=== PATIENT | female | born 1950 | race Caucasian/White ===

== ENCOUNTER 2016-07-16 13:10 | Emergency (ER) | payer OTHER ==
[~2016-07-16] VITALS: Ht 162.6 cm; Wt 105.9 kg
[~2016-07-16 13:10] MED LIST: ALBU8.5H2 IH; FURO-128 PO; HYDR200T PO; KLO1T PO; LISI-609 PO; METO25TA6 PO; PANT40TA2 PO; SERT20OR6 PO
[2016-07-16 13:14] VITALS: BP 134/85; PULSE 82; RESP 20; O2SAT 99
--- NOTE | 2016-07-16 13:38 | ED.REPORT ---
HPI-General Illness Date of Service Jul 16, 2016 ED Provider: Clemente Grover MD Pt is a 66 y.o. female with a hx of Lupus, DM II, CHF, Hep C, and Sjgren's who presents to the ED c/o right sided facial pain onset today. Pt states that it began in her right eye this morning and began to radiate outward. She reports associated headache, nausea, and right flank pain. She denies fever, vomiting, dizziness, head injury, and urinary symptoms. Pt reports taking Naproxen 3 hours prior to arrival with no relief. Pt states she was recently started on Citalopram, 1 week ago, and did not take it last night due to her headache and Dr. Summers recommendation. Pt denies taking immunosuppressants currently. Nursing Notes Stated Complaint: FACIAL PAIN,NAUSEA Chief Complaint: Back Pain or Injury Nursing Notes Reviewed: Yes Allergies: Coded Allergies: Penicillins (Verified Allergy, Severe, Rash, 08/29/14) lamotrigine (Unverified Adverse Reaction, Severe, SLE FLARE, 08/29/14) tramadol (Unverified Adverse Reaction, Severe, SERATONIN SYNDROME, 08/29/14 ) sertraline (Verified Adverse Reaction, Unknown, UNKNOWN (PT TAKING DRUG) , 08/29/14) Uncoded Allergies: ROZEREM/LUNESTA (Adverse Reaction, Severe, DIDN'T WORK, 12/20/13) Scheduled Cephalexin (Cephalexin) 500 Mg Capsule 500 MG PO QID Furosemide (Lasix) 40 Mg Tablet 40 MG PO DAILY Hydroxychloroquine Sulfate (Plaquenil) 200 Mg Tablet 200 MG PO DAILY Lisinopril (Zestril) 5 Mg Tablet 10 MG PO DAILY Metoprolol Tartrate (Metoprolol Tartrate) 25 Mg Tablet 12.5 MG PO BID Ondansetron ODT (Ondansetron ODT) 4 Mg Tab.rapdis 4 MG PO TID Pantoprazole DR (Protonix) 40 Mg Tablet 40 MG PO DAILYAC Sertraline HCl (Sertraline) 20 Mg/1 Ml Oral.conc 150 MG PO DAILY Scheduled PRN Albuterol HFA (Proair HFA) 8.5 Gm Hfa.aer.ad 2 PUFFS IH Q4 PRN PRN For Shortness of Breath Clonazepam (Clonazepam) 1 Mg Tab 1 MG PO DAILY PRN PRN For Anxiety General Time Seen by MD: 13:37 Chief Complaint Other (Flank pain, right) Hx Obtained From: Patient Arrived By: Walk-in Sudden in Onset?: Yes Symptom Duration: Since onset Location: : Abdomen (Flank, right) Quality: Painful Past Medical History Past Medical History CHF Osteoarthritis Hepatitis C-never treated for Inflamatory bowel syndrome Chronic otitis media Chronic insomnia Sjogrens syndrome Reports: Hypertension Past Surgical History Reports: Appendectomy, , Cholecystectomy, Tonsillectomy Smoking History Former Smoker Social History Alcohol Use: "Social" Drug Use: Denies drug use Review of Systems Facial pain, right Full Review of Systems Constitutional: Denies: Fever Eyes: Reports: Eye pain right GI: Reports: Nausea, Denies: Vomiting Female: Reports: Flank pain, Denies: Dysuria, Urinary frequency, Urinary urgency Neurologic: Reports: Headache, Denies: Dizziness Complete sys rev & neg: except as marked. Physical Exam Vital Signs Vital Signs Date Time Temp Pulse Resp B/P Pulse Ox O2 Delivery O2 Flow Rate FiO2 07/16/16 13:14 36.2 82 20 134/85 99 Room Air Initial VS: Reviewed Abdomen / GI: No distention Extremities: Vascular intact, Neuro intact Skin: Warm, Dry, No cyanosis Neurologic: Alert, Oriented, Nonfocal Psychiatric: Mood/affect normal, Behavior normal, Normal thought content General/Constitutional: Awake, Alert, Well appearing, Well developed, Well hydrated, Well nourished, Not toxic appearing Appearance / Presentation: Positive: Obese Head / Eyes: Atraumatic, Normocephalic, PERRL, EOMI Right sided facial tenderness to percussion. Right mucosa engorged. ENT: Atraumatic, Airway patent, Mucous membranes moist, Pharynx NL, Tympanic membs NL, Ext aud canal NL Multiple dental extractions, dentition that remains is intact. Back: Atraumatic, Inspection NL Right CVA tenderness. Interpretation & Diagnostics Lab Results Interpretation Result Diagram: 07/16/16 1520 07/16/16 1520 Test 07/16/16 13:45 07/16/16 15:20 Urine Color Dark yellow (YELLOW) Urine Appearance Hazy (CLEAR,HAZY) Urine pH 5.0 (5.0-8.0) Urine Specific [place] 1.030 (1.003-1.035) Urine Protein Tracemg/dL (NEG,TRACE) Urine Glucose (UA) 100mg/dL (NEGATIVE) Urine Ketones Negativemg/dL (NEGATIVE) Urine Occult Blood Negative (NEGATIVE) Urine Nitrite Negative (NEGATIVE) Urine Bilirubin Negative (NEGATIVE) Urine Urobilinogen Normalmg/dL (NORMAL) Urine Leukocyte Esterase Moderate (NEGATIVE) Urine RBC 0-2/hpf (0-2) Urine WBC 11-50/hpf (0-5) Urine Epithelial Cells Moderate/hpf (NONE-MOD) Urine Crystals None seen (NONE SEEN) Urine Bacteria Moderate/hpf (NONE-FEW) Urine Hyaline Casts None/lpf (NONE) Urine Granular Casts None seen (NONE SEEN) Urine Waxy Casts None seen (NONE SEEN) Urine Red Blood Cell Casts None seen (NONE SEEN) Urine White Blood Cell Casts None seen (NONE SEEN) Urine Mucus Present (None Seen) Urine Trichomonas None seen (NONE SEEN) Urine Yeast None (NONE SEEN) Urinalysis Comment None Urine Culture Reflexed Indicated White Blood Count 4.8th/mm3 (3.8-10.1) Red Blood Count 4.63mil/mm3 (3.90-5.20) Hemoglobin 13.2g/dL (12.0-15.6) Hematocrit 39.6% (35.0-46.0) Mean Corpuscular Volume 85.5fL (81-100) Mean Corpuscular Hemoglobin 28.5pg (27.0-35.0) Mean Corpuscular Hemoglobin Concent 33.3% (32.0-37.0) Red Cell Distribution Width 13.9% (12.3-15.4) Platelet Count 182bil/L (150-400) Neutrophils (%) (Auto) 57.1% (40-74) Lymphocytes (%) (Auto) 31.6% (14-46) Monocytes (%) (Auto) 8.2% (4-12) Eosinophils (%) (Auto) 2.7% (0-5) Basophils (%) (Auto) 0.2% (0-3) Sodium Level 138mEq/L (134-144) Potassium Level 3.6mEq/L (3.5-5.2) Chloride Level 102mEq/L (97-108) Carbon Dioxide Level 23mmol/L (18-29) Blood Urea Nitrogen 14mg/dL (8-27) Creatinine 0.60mg/dL (0.57-1.00) Estimat Glomerular Filtration Rate 142mL/min (>59) Glucose Level 162mg/dL (60-99) Calcium Level 9.3mg/dL (8.5-10.1) Total Bilirubin 0.6mg/dL (0.0-1.2) Aspartate Amino Transf (AST/SGOT) 43U/L (0-50) Alanine Aminotransferase (ALT/SGPT) 34U/L (0-32) Alkaline Phosphatase 71U/L (25-165) Total Protein 6.4g/dL (6.4-8.4) Albumin 3.5g/dL (3.4-5.0) Hold Evans Top Tube Received (Received) CT Head Interpretation IMPRESSION: No acute intracranial disease process. Dictated by: Dannielle Hernandez MD, PhD on 07/16/2016 at 14:31 Approved by: Dannielle Hernandez MD, PhD on 07/16/2016 at 14:33 Re-Eval/Medical Decision Source of Hx: Old records Time of Eval: 16:00 Re-Evaluation/Progress Note: Pt rechecked. Discussed imaging results. Pt states Penicillin allergy is unknown and from childhood. Will administer Keflex. Counseled Regarding: Diagnosis, Lab results, Need for follow-up, When/why to return to ED Discharge & Departure Primary Impression: Pyelonephritis Additional Impressions: Nausea Facial pain Disposition: Home Discharge Condition All VS Reviewed: Yes Condition: Improved Patient Instructions: Sinusitis (ED) Additional Instructions: Emergency department evaluation today included review, examination labs and CT brain. It appears that you have a kidney infection. The facial pain may be due to some sinus congestion, but there does not appear to be an acute sinus infection requiring antibiotics. Use of a nasal saline spray should help relieve the congestion/pressure. We started cephalexen 500mg 4 times a day for 10 days for the kidney infection. May use ibuprofen as needed for pain- 400mg 3 times a day. Ondansetron as needed for nausea. Return to ED for fevers, vomiting increasing flank pain. Follow up with your doctor in 3-5 days, call them monday. Referrals: Milena Summers MD (PCP) Scribe Attestation Portions of this note were transcribed by Clara Duque. IDr. Grover personally performed the history, physical exam and medical decision-making; I reviewed and confirmed the accuracy of the information in the transcribed note. Signed by: Bessy Jara, 07/16/16 and 1747. copies to: Milena Summers MD, Donald L MD Jul 16, 2016 13:38 CLARA DUQUE Jul 16, 2016 13:42
[2016-07-16] MEDS ORDERED: Ondansetron 8 mg ODT Tablet PO ONE (14:15)
--- NOTE | 2016-07-16 14:47 | DRSVH ---
PROCEDURE: CT BRAIN WITHOUT CONTRAST ([id number]) INDICATIONS: headache and nausea TECHNIQUE: Noncontrast 4.5 mm thick angled axial sections acquired from the foramen magnum to the vertex, with c oronal reformats. COMPARISON: [facility], CT, BRAIN W/O CONTRAST, 04/18/2008, 16:42. FINDINGS: Image quality: Excellent. CSF spaces: Basal cisterns are patent. No extra-axial fluid collections. The ventricles are symmet delisa in size and shape. Brain: No intracranial bleeds or masses. There is cerebral volume loss for age, with resultant vent ricular and sulcal prominence. There are periventricular and deep white matter chronic small vessel ischemic changes. There is intracranial internal carotid artery atherosclerosis. Skull and face: Calvarium and visualized facial bones appear intact, without suspicious lesions. Sinuses: Mild mucosal thickening noted in the right sphenoid sinus. The mastoids are clear. IMPRESSION: No acute intracranial disease process. Dictated by: Dannielle Hernandez MD, PhD on 07/16/2016 at 14:31 Approved by: Dannielle Hernandez MD, PhD on 07/16/2016 at 14:33
[2016-07-16 14:48] LABS: APPEARANCE,URINE HAZY (CLEAR,HAZY); COLOR,URINE DARK YELLOW (YELLOW); OCCULT BLOOD,URINE NEGATIVE (NEGATIVE); UROBILINOGEN,URINE NORMAL (NORMAL)
[2016-07-16 15:34] LABS: BASOPHILS % (AUTO) 0.2 % (0-3); EOSINOPHILS % (AUTO) 2.7 % (0-5); MONOCYTES % (AUTO) 8.2 % (4-12); Mean Corpuscular Hemoglobin 28.5 pg (27.0-35.0); Mean Corpuscular Volume 85.5 fL (81-100); NEUTROPHILS % (AUTO) 57.1 % (40-74); Platelet Count 182 bil/L (150-400)
[2016-07-16] MEDS ORDERED: CEPH500C PO (17:25)
[2016-07-16] MEDS ORDERED: ONDA4TAB12 PO (17:25)
== END 2016-07-16 16:58 | disposition home or self-care (01) ==
LOC: SED 13:10
DX: N12 Tubulo-interstitial nephritis, not specified as acute or chronic (principal); R51 Headache; I11.0 Hypertensive heart disease with heart failure; I50.9 Heart failure, unspecified; E11.59 Type 2 diabetes mellitus with other circulatory complications; M32.9 Systemic lupus erythematosus, unspecified; Z90.49 Acquired absence of other specified parts of digestive tract; Z87.891 Personal history of nicotine dependence; Z88.0 Allergy status to penicillin; Z88.5 Allergy status to narcotic agent

== ENCOUNTER 2016-08-08 11:42 | Day surgery (SDC) | payer OTHER, MEDICARE ==
[~2016-08-08] VITALS: Ht 162.6 cm; Wt 107.0 kg
[~2016-08-08 11:42] MED LIST changes: +0.9% Sodium Chloride 1,000 ML IV SCH; +CEPH500C PO; +ONDA4TAB12 PO; +Sodium Chloride LOK Flush 10 mL Syringe IV PRN; +fentaNYL-PF 50 mCg/mL 2 mL Inj IVPUSH PRN
[2016-08-08] MEDS ORDERED: Propofol 10,000 mCg/mL 20 mL Inj ONE (11:43)
[2016-08-08 12:05] VITALS: BP 121/60; PULSE 65; RESP 16; O2SAT 97
[2016-08-08] MEDS ORDERED: METF500T4 PO (12:05)
[2016-08-08] MEDS ORDERED: SPIR25TA3 PO (12:05)
[2016-08-08] MEDS ORDERED: CITA20TA11 PO (12:05)
[2016-08-08] MEDS ORDERED: LOSA25TA21 PO (12:05)
--- NOTE | 2016-08-08 13:25 | PCM.ENDEGD ---
EGD Date of Service: Aug 08, 2016 Physician James Crawford MD Pre Procedure Diagnosis: Abdominal pain and diarrhea Post Procedure Dx & Findings: Esophagitis gastritis Procedure Esophagogastroduodenoscopy PROCEDURE IN DETAIL: After proper sedation, Olympus video endoscope was inserted into patient's mouth and esophagus was successfully intubated. Scope introduced esophagus. Esophagus showed normal shiny whitish mucosa consistent with squamous cell component. Z line was at 35 cm from the incisors. There was mild edema with redness. As no clear displacement of the Z line. Biopsies obtained. Scope further advanced to the stomach. Stomach showed diffuse atrophy of the antrum to the body of the stomach. Isolated redness noted as well. Biopsies obtained. Cardia fundus body antrum pylorus were all visualized. Retroflexion was done. Stomach was easily inflated and deflatable using air. Scope further advanced to the distal duodenum. Duodenum revealed normal villous structures with normal appearing folds without any mass ulcer erosion. 5 biopsies obtained. Impression Esophagitis Gastritis Recommendation Avoid NSAIDs Continue PPI All of GI with PA Presedation Assessment Risks and Benefits Informed consent was obtained from the patient after all risks and benefits including but not limited to drug reaction, infection, pain, bleeding, perforation, as well as alternatives were discussed. Patient monitoring Continuous pulse oximetry, cardiac monitoring, blood pressure monitoring, IV access, and oxygen at 2L per nasal cannula. Periprocedural Fentanyl: Fentanyl 125mcg Incrementally Midazolam: Midazolam 7mg Incrementally Complications There were no periprocedural complications identified. Post Procedure Plan Post Procedure Recommendations 1. Restrict activities today. 2. Resume normal activities in the morning. 3. Resume medications. 4. GERD behavioral modification: - Avoid fatty, acidic, spicy, large meals - Do not lie down after meals - Do not eat or drink anything for at least 2 1/2 hours before going to bed at night - Discontinue tobacco and alcohol - Decrease or avoid caffeine - Avoid chocolate and mints - Decrease weight - Avoid aspirin and non steroidal anti-inflammatory agents (NSAID) such as Aleve, Advil, Mobic, Naproxen, Ibuprofen, etc 5. Add proton pump inhibitor. Take 30 minutes before 1st meal of the day. 6. Patient informed of normal post procedure side effects as bloating, drowsiness, blood streaking in the stool 7. If gastric biopsy reveal H.pylori, continue with appropriate treatment 8. If small bowel biopsy reveals celiac, continue with appropriate treatment 9. Please don't hesitate to call me with any questions James Crawford MD Aug 08, 2016 13:25
[2016-08-08 13:26] VITALS: BP 157/77; PULSE 68; RESP 14; O2SAT 98
[2016-08-08] MEDS ORDERED: Lactated Ringer's 1,000 ML IV SCH (13:26)
--- NOTE | 2016-08-08 13:26 | PCM.HPANE ---
Patient Data Date of Service: Aug 08, 2016 Surgeon Admitting Provider: Attending Provider:James Crawford MD Primary Care Physician:Milena Summers MD Other Provider: Reason for Visit Abdominal Pain Of Unknown Cause Ht/WT & BMI Height (Feet): 5 Height (Inches): 4 Weight (Kilograms): 107 Body Mass Index 40.00 Allergies Coded Allergies: Penicillins (Verified Allergy, Severe, Rash, 08/08/16) lamotrigine (Verified Adverse Reaction, Severe, SLE FLARE, 08/08/16) tramadol (Verified Adverse Reaction, Severe, SERATONIN SYNDROME, 08/08/16) sertraline (Verified Adverse Reaction, Unknown, UNKNOWN (PT TAKING DRUG) , 08/08/16) Uncoded Allergies: ROZEREM/LUNESTA (Adverse Reaction, Severe, DIDN'T WORK, 12/20/13) Past Anesthesia History Anesthesia History: Denies:: Anesthesia Reactions, Fam Anesthesia Reaction, Fam Malignant Hypertherm, Malignant Hyperthermia Diabetes History Hx Diabetes?: Yes ("i just kind of ignore it" just diagnosed november 2014) Current Bedside Blood Glucose: 99 MRSA MRSA: No Medications Active Scripts Ondansetron ODT 4 Mg Tab.rapdis4 Mg PO TID NAUSEA #6 TABLET Prov:Clemente Grover MD 07/16/16 Reported Medications Spironolactone 25 Mg [id number] Mg PO DAILY #30 TABLET Ref 0 08/08/16 Citalopram 20 Mg Ffxdrl41 Mg PO DAILY Ref 0 08/08/16 Metformin 500 Mg Tablet1,000 Mg PO BID Ref 0 08/08/16 Losartan Potassium 25 Mg Egxzov86 Mg PO DAILY 08/08/16 Albuterol HFA (Proair HFA)8.5 Gm Hfa.aer.ad2 Puffs IH Q4 PRN For Shortness of Breath #1 INHALER 12/20/13 Clonazepam 1 Mg Tab1 Mg PO DAILY PRN For Anxiety 30 Days Ref 0 12/20/13 Discontinued Reported Medications Hydroxychloroquine Sulfate (Plaquenil)200 Mg Cnjbzp939 Mg PO DAILY 12/23/13 Sertraline HCl (Sertraline)20 Mg/1 Ml Oral.wqhn116 Mg PO DAILY #1 BOTTLE Ref 0 12/20/13 Discontinued Scripts Cephalexin 500 Mg Qxfcnfs601 Mg PO QID #40 CAPSULE Prov:Clemente Grover MD 07/16/[address] (Protonix)40 Mg Winzaw20 Mg PO DAILYAC 30 Days Prov:Paddy Bailey MD 10/01/13 Furosemide (Lasix)40 Mg Ronorl32 Mg PO DAILY 30 Days Prov:Paddy Bailey MD 10/01/13 Metoprolol Tartrate 25 Mg Dfmfxv20.5 Mg PO BID 30 Days Ref 0 Prov:Paddy Bailey MD 09/30/13 Lisinopril (Zestril)5 Mg Aiphka44 Mg PO DAILY 30 Days Prov:Paddy Bailey MD 09/30/13 History History of ENT Problems?: Yes HEENT History: Positive for:: Hearing Problem (CHRONIC OM/LT ATTIC CHOLESTEATOMA=CURRENT PROBLEM) Denture Type: None Teeth Condition: Within Normal Limits Hx of Heart Problems?: Yes Cardiovascular History: Positive for:: Abdominal Aortic Aneurism (ECHO 09/26- ASCENDING AORTA MILD-MOD ENLARGED) Chest Pain (HOSP 09/2013) Congestive Heart Failure Edema Hypertension Denies:: AICD Heart Murmur (ECHO 09/2013) Pacemaker Valvular Heart Disease Hx of Respiratory Problem?: Yes Respiratory History: Positive for:: Asthma Use of C-PAP Machine (MATTIE+ SLEEP STUDY 11/20/13) Denies:: Tuberculosis Hx Neurologic Problems?: Yes Neurological History: Denies:: CVA Hx of GI Problems?: Yes Hx of Problems?: Yes Genitourinary History: Positive for:: Kidney Stones (??POSS HX OF) Urinary Tract Infection Denies:: HX of Hemodialysis HX of Peritoneal Dialysis: No Female Hx: Denies:: Currently (S/P C/S X2,D&C) Endometriosis Pelvic Inflammatory Problems with Breasts? Skin History: Positive for:: History Skin Disorders? (C/OF ERYTHEMA/PRURITIS) Denies:: Pressure Ulcers Hx Musculoskeletal Problems?: Yes Musculoskeletal History: Positive for:: Systemic Lupus (SLE/SJOGREN'S SYNDROME ) Hx of Psycho/Social Problems?: Yes Psycho Social History: Positive for:: Anxiety Hx Depression Hx Surgeries?: Yes (APPY,C/S X2,TONSILLECTOMY,D&C, TOE NAILS REMOVED RIGHT FOOT ) Hx Any Other Health Problems?: Yes Other History: Positive for:: Hospitalization (CHEST PAIN) Denies:: Cancer Endocrine Disease Thyroid Disease History Blood Transfusions: Denies:: Blood Transfuse Reaction Blood Transfusions Hx Diabetes: Yes ("i just kind of ignore it" just diagnosed november 2014) Bedside Blood Glucose: 99 Hx Alcohol Use: NoHx Substance Use: No Smoking Status: Former Smoker Have You Smoked inLast 12 mo: No Stop/Bang Treated for Sleep Apnea?: Yes Do You Have a CPAP Machine?: No (CAN'T TOLERATE) Risk Assessment Category Category 1A: Patient has history of documented sleep apnea, and HAS NOT received any narcotic, sedative or anesthesia administration during this stay. Category 1B: Patient has history of documented sleep apnea, and HAS received any narcotic , sedative or anesthesia administration during this stay Category 2: Patient has SUSPECTED Obstructive Sleep Apnea, and HAS received any narcotic , sedative or anesthesia administration during this stay. Category 3: Patient has SUSPECTED Obstructive Sleep Apnea and HAS NOT received narcotic, sedative or anesthesia administration during this stay. Category 4: Outpatient in Procedural Areas with known sleep apnea or who screen positive for High Risk via the STOP/BANG questionnaire. Exam Exam Vital Signs Vital Signs Date Time Temp Pulse Resp B/P Pulse Ox O2 Delivery O2 Flow Rate FiO2 08/08/16 12:05 65 16 121/60 97 Room Air General Appearance: Other (sedated) HEENT/AIRWAY: Neck Movement Meds/Labs/Diagnostics Admission Meds Current Medications Lidocaine HCl (Xylocaine Viscous 2% Soln 15mL) 15 ml ONCE PO Last administered on 08/08/16t 13:04; Start 08/08/16 at 06:00 Bedside Blood Glucose: 99 Plan Impression Patient chart reviewed, patient interviewed and anesthestic plan with risks, benefits, and alternatives discussed, and informed consent obtained. NPO per Anesth. Guidelines: Yes ASA Physical Status: ASA2 Mod Systemic Disease Anesthetic Plan: MAC Bene/Risks/Altern/Consents: No HP Complete Prior to Induction: No Other Intra-procedure rescue sedation due to poor patient tolerance. Unable to obtain consent due to patient's level of sedation. Giancarlo Blake MD Aug 08, 2016 13:26
--- NOTE | 2016-08-08 13:29 | PCM.ENDCOL ---
Colonoscopy Date of Service: Aug 08, 2016 Physician James Crawford MD Pre Procedure Diagnosis: Screening abdominal diarrhea Post Procedure Dx & Findings: colon polyp diverticuli hemmorhoids Procedure Colonoscopy PROCEDURE IN DETAIL: Prep adequate Withdrawal time 14 minutes After unremarkable rectal examination the Olympus video colonoscope was inserted patient's anal canal and was advanced to cecum. Landmarks were identified including the ileocecal valve and appendiceal orifice. Scope further advanced to the terminal ileum. Visualized terminal ileum showed normal villous structures without any ulcer mass or erosion. Advanced 8 cm. Scope was withdrawn systematically. Visualized colonic mucosa showed healthy shiny mucosa with normal healthy-appearing vasculature. In the cecum, there was a 1 mm polyp which was removed completely using cold forceps. In the ascending colon there are 2 polyps which was removed completely using cold forceps. These were 1 mm in size. The ascending colon there was a 3 mm polyp which was removed completely using cold snare. Random biopsies are obtained from the cecum to the rectum for workup of diarrhea. Small several diverticula noted in the sigmoid colon. In the rectum retroflexion was done which showed hemorrhoids. Anal canal was inspected carefully on the way out and hemorrhoids noted. Impression Polyps 4 status post complete removal Diverticula Normal TI Hemorrhoids Recommendation Repeat colonoscopy 3 years Diverticular diet Presedation Assessment Risks and Benefits Informed consent was obtained from the patient after all risks and benefits including but not limited to drug reaction, infection, pain, bleeding, perforation, as well as alternatives were discussed. Patient monitoring Continuous pulse oximetry, cardiac monitoring, blood pressure monitoring, IV access, and oxygen at 2L per nasal cannula. Complications There were no periprocedural complications identified. Post Procedure Plan Post Procedure Recommendations 1. Restrict activities today. 2. Resume normal activities in the morning. 3. Resume medications. 4. Patient informed of normal post procedure side effects as bloating, drowsiness, blood streaking in the stool. 5. average risk CRCS. If colon polyps come back as: -Hyperplastic- can repeat colonoscopy in 10 years -Tubular adenoma- repeat colonoscopy in 5 years -Tubulovillous/villous adenoma- repeat colonoscopy in 3 years -If any dysplasia- return to clinic as soon as possible 6. Please don't hesitate to call me with any questions. James Crawford MD Aug 08, 2016 13:29
[2016-08-08] MEDS ORDERED: MetoCLOpramide 5 mg/mL 2 mL Inj IVPUSH PRN (13:30)
[2016-08-08] MEDS ORDERED: Ondansetron 2 mg/mL 2 mL Inj IVPUSH PRN (13:30)
[2016-08-08 13:36] VITALS: BP 151/79; PULSE 60; RESP 14; O2SAT 96
--- NOTE | 2016-08-08 13:43 | PCM.ANEP1 ---
Post Anesthesia PACU Phase 1 Assessment Date of Service: Aug 08, 2016 Vital Signs Vital Signs Date Time Temp Pulse Resp B/P Pulse Ox O2 Delivery O2 Flow Rate FiO2 08/08/16 13:36 60 14 151/79 96 Room Air 08/08/16 13:26 68 14 157/77 98 Room Air 08/08/16 12:05 65 16 121/60 97 Room Air Anesthetic Administered: MAC Level of Alertness: Awake, talking TRAYLOR's with Equal Strength: Yes Pain: No Nausea or Vomiting: No CV Function & Hydration Stable: Yes Airway Device: Oxygen Delivery: Room Air Lungs: Normal Air Movement PACU Phase 2 Assessment Complications: No Follow up Care: N/A Patient Instructions Provided: N/A Comments Rescue MAC requested by endo team in the middle of a colonoscopy, not being tolerated by patient with 7 mg Versed and 125 mcg Fentanyl Giancarlo Blake MD Aug 08, 2016 13:43
--- NOTE | 2016-08-10 17:25 | PATH ---
SURGICAL PATHOLOGY Attending Physician:James Crawford M.D. CASE STATUS: Signed Out PATIENT NAME: NICKOLAS MONK PID: [id number] : 1950 DATE COLLECTED:08/08/2016 00:00 SPECIMEN: 1: Duodenum, Biopsy 2: Gastric, Biopsy 3: Esophagus, Biopsy 4: Colon, Polyp 5: Colon, Biopsy 6: Colon, Polyp 7: Colon, Polyp CLINICAL HISTORY: 1. DUODENAL BX 2. GASTRIC BX 3. ESOPHAGEAL BX 4. CECAL POLYP X1 5. RANDOM COLON BX 6. ASCENDING POLYP X2 7. DESCENDING POLYP FINAL DIAGNOSIS: 1.DUODENAL BIOPSY: DUODENAL MUCOSA WITH NO DIAGNOSTIC ABNORMALITY. Negative for active inflammation, features of sprue, dysplasia, and malignancy. 2.GASTRIC BIOPSY: PORTION OF GASTRIC ANTRAL MUCOSA WITH MILD CHRONIC GASTRITIS AND REACTIVE CHANGES; NEGATIVE FOR DYSPLASIA AND MALIGNANCY. No H. pylori organisms identified by H&E stain. 3.ESOPHAGEAL BIOPSY: SQUAMOCOLUMNAR JUNCTIONAL MUCOSA WITH NO DIAGNOSTIC ABNORMALITY. Negative for intestinal metaplasia. Negative for dysplasia and malignancy. 4.CECAL POLYP, BIOPSY: TUBULAR ADENOMA; NEGATIVE FOR HIGH-GRADE DYSPLASIA. 5.RANDOM COLON BIOPSIES: COLONIC MUCOSA WITH NO DIAGNOSTIC ABNORMALITY. Negative for active, chronic, and microscopic colitis. Negative for dysplasia and malignancy. 6.ASCENDING COLON, POLYP, BIOPSIES: TUBULAR ADENOMA X1; NEGATIVE FOR HIGH-GRADE DYSPLASIA. SUPERFICIAL PORTION OF COLORECTAL MUCOSA X1 WITH NO SIGNIFICANT HISTOMORPHOLOGIC ABNORMALITY. 7.DESCENDING COLON, POLYP, BIOPSY: HISTOLOGIC FEATURES CONSISTENT WITH HYPERPLASTIC POLYP; TANGENTIAL ORIENTATION FOCALLY OBSCURES FEATURES. ICD10 K63.5 GROSS DESCRIPTION: The specimen is received in seven formalin filled containers labeled with the patient's name. 1). The specimen is sublabeled "duodenal" and consists of 4 extremely tiny portions of tissue which aggregate to 0.2 x 0.2 x 0.2 CM. The specimen is entirely submitted in cassette 1A. 2). The specimen is sublabeled "gastric" and consists of a 0.2 x 0.2 x 0.2 CM portion of tissue which is entirely submitted in cassette 2A. 3). The specimen is sublabeled "esophageal" and consists of a 0.2 x 0.2 x 0.2 CM portion of tissue which is entirely submitted in cassette 3A. 4). The specimen is sublabeled "cecal polyp" and consists of a 0.1 x 0.1 x 0.1 CM portion of tissue which is entirely submitted in cassette 4A. 5). The specimen is sublabeled "random colon" and consists of multiple portions of tissue which aggregate to 0.7 x 0.3 x 0.2 CM. The specimen is entirely submitted in cassette 5A. 6). The specimen is sublabeled "ascending polyp" and consists of 2 portions of tissue which aggregate to 0.2 x 0.2 x 0.2 CM. The specimen is entirely submitted in cassettes 6A. 7). The specimen is sublabeled "descending polyp" and consists of a 0.5 x 0.4 x 0.3 CM portion of tissue which is entirely submitted in cassette 7A. 08/09/2016 DAC MICRO DESCRIPTION: See diagnosis. ICD-9 CODES: CPT CODES: 1: 45385 2: 92730 3: 22539 4: 14388 5: 31603 6: 45178 7: 31904 Electronically Signed Out Maya Uribe MD [facility] Pathology [facility] [place] [address] Technical component performed at [facility], [facility] [address], [place], [address]
== END 2016-08-08 23:59 | disposition home or self-care (01) ==
LOC: END 11:42
PROVIDERS: ATTEND Internal Medicine
DX: D12.0 Benign neoplasm of cecum (principal); D12.2 Benign neoplasm of ascending colon; K63.5 Polyp of colon; K64.9 Unspecified hemorrhoids; K57.30 Diverticulosis of large intestine without perforation or abscess without bleeding; K29.50 Unspecified chronic gastritis without bleeding; R10.9 Unspecified abdominal pain; I10 Essential (primary) hypertension; I50.9 Heart failure, unspecified; E11.9 Type 2 diabetes mellitus without complications; E78.5 Hyperlipidemia, unspecified; M32.9 Systemic lupus erythematosus, unspecified; B18.2 Chronic viral hepatitis C; M48.00 Spinal stenosis, site unspecified; M35.00 Sjogren syndrome, unspecified; G47.33 Obstructive sleep apnea (adult) (pediatric); E66.01 Morbid (severe) obesity due to excess calories; K21.9 Gastro-esophageal reflux disease without esophagitis; I71.4 Abdominal aortic aneurysm, without rupture; J45.909 Unspecified asthma, uncomplicated; F41.8 Other specified anxiety disorders; Z87.891 Personal history of nicotine dependence; Z79.84 Long term (current) use of oral hypoglycemic drugs; Z68.41 Body mass index [BMI] 40.0-44.9, adult
CPT/HCPCS: 43239; 45380; 45385; G0500; J2250; J3010

== ENCOUNTER 2016-11-08 16:08 | Emergency (ER) | payer OTHER ==
[~2016-11-08] VITALS: Ht 162.6 cm; Wt 100.0 kg
[~2016-11-08 16:08] MED LIST changes: -0.9% Sodium Chloride 1,000 ML IV SCH; -CEPH500C PO; +CITA20TA11 PO; -FURO-128 PO; -HYDR200T PO; -LISI-609 PO; +LOSA25TA21 PO; +METF500T4 PO; -METO25TA6 PO; -PANT40TA2 PO; -SERT20OR6 PO; +SPIR25TA3 PO; -Sodium Chloride LOK Flush 10 mL Syringe IV PRN; -fentaNYL-PF 50 mCg/mL 2 mL Inj IVPUSH PRN
[2016-11-08 16:13] VITALS: BP 112/74; PULSE 71; RESP 12; O2SAT 95
--- NOTE | 2016-11-08 19:27 | ED.REPORT ---
HPI-Chest Pain 40 and Over Date of Service Nov 08, 2016 ED Provider: Zeyad Keene DO Pt is a 66 year old female with a history of cholecystectomy, CHF, and HTN who presents to the ED complaining of RUQ abdominal pain onset 3 days ago. She c/o associated dyspnea and recent injury. Pt reports that her pain is exacerbated with moving her right arm. She denies any other symptoms. Nursing Notes Stated Complaint: CHEST PAIN Chief Complaint: Chest Pain-Non Cardiac Nature Nursing Notes Reviewed: Yes Allergies: Coded Allergies: Penicillins (Verified Allergy, Severe, Rash, 08/08/16) lamotrigine (Verified Adverse Reaction, Severe, SLE FLARE, 08/08/16) tramadol (Verified Adverse Reaction, Severe, SERATONIN SYNDROME, 08/08/16) sertraline (Verified Adverse Reaction, Unknown, UNKNOWN (PT TAKING DRUG) , 08/08/16) Uncoded Allergies: ROZEREM/LUNESTA (Adverse Reaction, Severe, DIDN'T WORK, 12/20/13) Scheduled Citalopram (Citalopram) 20 Mg Tablet 20 MG PO DAILY Losartan Potassium (Losartan Potassium) 25 Mg Tablet 25 MG PO DAILY Metformin (Metformin) 500 Mg Tablet 1,000 MG PO BID Ondansetron ODT (Ondansetron ODT) 4 Mg Tab.rapdis 4 MG PO TID Spironolactone (Spironolactone) 25 Mg Tablet 25 MG PO DAILY Scheduled PRN Albuterol HFA (Proair HFA) 8.5 Gm Hfa.aer.ad 2 PUFFS IH Q4 PRN PRN For Shortness of Breath Clonazepam (Clonazepam) 1 Mg Tab 1 MG PO DAILY PRN PRN For Anxiety General Time Seen by MD: 19:26 Chief Complaint Other (abdominal pain) Hx Obtained From: Patient Arrived By: Walk-in Sudden in Onset?: No Onset Occurred: 3 days ago Symptom Duration: Since onset Quality: Painful Radiation: : Does not radiate Migration/Movement: Reports: None Severity: Current: Moderate Severity: Maximum: Moderate Recent Healthcare: No recent doctor visit, No recent hospitalization Similar Sx Previous: No Past Medical History Past Medical History CHF Osteoarthritis Hepatitis C-never treated for Inflamatory bowel syndrome Chronic otitis media Chronic insomnia Sjogrens syndrome Reports: Hypertension Past Surgical History Reports: Appendectomy, , Cholecystectomy, Tonsillectomy Smoking History Former Smoker Social History Alcohol Use: "Social" Drug Use: Denies drug use Ambulatory Status Independent Review of Systems + Dyspnea Denies injury Constitutional: Denies: Fever GI: Reports: Abdominal pain Complete sys rev & neg: except as marked. Physical Exam Initial Vital Signs Vital Signs (First) Date Time Temp Pulse Resp B/P Pulse Ox O2 Delivery O2 Flow Rate FiO2 11/08/16 16:13 36.7 71 12 112/74 95 11/08/16 23:19 Room Air Initial VS: Reviewed Head / Eyes: Atraumatic, Normocephalic Neck: Supple, Full range of motion Skin: Warm, Dry, No cyanosis Neurologic: Alert, Oriented, Nonfocal Psychiatric: Mood/affect normal, Behavior normal General/Constitutional: Awake, Alert Respiratory / Chest: Atraumatic, Breath sounds NL, Breath sounds = bilat No chest wall tenderness Cardiovascular: Heart rate NL, Regular rhythm, Heart sounds NL Abdomen: Atraumatic, Soft Mild RUQ tenderness Upper Extremity / MS: Neurologic intact, Vascular intact Limited range of motion of right arm Interpretation & Diagnostics Lab Results Interpretation Result Diagram: 11/08/16 2015 11/08/16 2015 Test 11/08/16 20:15 11/09/16 00:06 White Blood Count 5.1th/mm3 (3.8-10.1) Red Blood Count 4.77mil/mm3 (3.90-5.20) Hemoglobin 13.7g/dL (12.0-15.6) Hematocrit 40.5% (35.0-46.0) Mean Corpuscular Volume 84.9fL (81-100) Mean Corpuscular Hemoglobin 28.7pg (27.0-35.0) Mean Corpuscular Hemoglobin Concent 33.8% (32.0-37.0) Red Cell Distribution Width 13.8% (12.3-15.4) Platelet Count 159bil/L (150-400) Neutrophils (%) (Auto) 52.1% (40-74) Lymphocytes (%) (Auto) 39.4% (14-46) Monocytes (%) (Auto) 6.3% (4-12) Eosinophils (%) (Auto) 1.6% (0-5) Basophils (%) (Auto) 0.4% (0-3) D-Dimer < 0.50mg/L FEU (<0.50) Sodium Level 136mEq/L (134-144) Potassium Level 5.9mEq/L (3.5-5.2) Chloride Level 102mEq/L (97-108) Carbon Dioxide Level 24mmol/L (18-29) Blood Urea Nitrogen 12mg/dL (8-27) Creatinine 0.53mg/dL (0.57-1.00) Estimat Glomerular Filtration Rate 164mL/min (>59) Glucose Level 94mg/dL (60-99) Calcium Level 8.6mg/dL (8.5-10.1) Magnesium Level 1.9mg/dL (1.6-2.6) Total Bilirubin 0.4mg/dL (0.0-1.2) Aspartate Amino Transf (AST/SGOT) 45U/L (0-50) Alanine Aminotransferase (ALT/SGPT) 26U/L (0-32) Alkaline Phosphatase 72U/L (25-165) Total Protein 6.9g/dL (6.4-8.4) Albumin 3.7g/dL (3.4-5.0) Lipase 27U/L (13-60) Troponin T 0.010ug/L (0.0-0.011) CT Abd / Pelvis Interpretation CONCLUSION: No acture intra-abdominal abnormality. Fatty liver. Transmitted to the ED at 23:53 by Marvin Camarillo M.D Study type: Abdominal CT IV contrast Interpretation / Wet Read by: Interpret - Radiologist Re-Eval/Medical Decision Med Decision/Clinical Course 58-year-old female with 3 days of right-sided abdominal and chest pain. She states that anytime she turns or twists in a certain position she will rather severe right-sided chest pain. Lying down makes it worse as well. On examination she had some mild right-sided abdominal tenderness without rebound, guarding or rigidity. Her pain is adequately controlled. Myocardial infarction and PE were ruled out with diagnostics and risk stratification. CT scan of her abdomen was reassuring. She felt ready for discharge. I explained that the cause of her symptoms were uncertain and need close outpatient follow- up. VT, ischemic gut, aortic dissection pulmonary emboli are all highly unlikely. As such she will be treated with a short course of pain medication and have very close outpatient follow-up. Source of Hx: Old records Time of Eval: 00:13 Re-Evaluation/Progress Note: Pr rechecked. She is completely pain free and is ready to be discharged. Discussed normal CT, negative d-dimer, and plan to discharge home on pain medication. Pt understands and agrees with plan for discharge. F/U instructions and RTER warnings given. All questions addressed. Counseled Regarding: Diagnosis, Lab results, Need for follow-up, When/why to return to ED Discharge & Departure Primary Impression: Abdominal pain Abdominal location: unspecified location Qualified Code: R10.9 - Unspecified abdominal pain Additional Impression: Chest pain Chest pain type: unspecified Qualified Code: R07.9 - Chest pain, unspecified Disposition: Home Discharge Condition All VS Reviewed: Yes Condition: Stable Patient Instructions: Abdominal Pain (ED), Chest Pain (ED) Additional Instructions: [place] 1-2 every 6 hours as needed[address] Do not drive or drink alcohol or consume acetaminophen while on [place]. Call your primary care provider tomorrow for a follow up appointment next week. Return to the Emergency Department for any new or concerning symptoms. Referrals: Milena Summers MD (PCP) Scribe Attestation Portions of this note were transcribed by Chantel Lucas. I, Dr. Keene personally performed the history, physical exam and medical decision-making; I reviewed and confirmed the accuracy of the information in the transcribed note. Signed by : Bessy Soria, 11/08/16. copies to: Milena Summers MD, Todd P DO Nov 08, 2016 19:27 Chantel Nguyen Nov 08, 2016 19:42
[2016-11-08] MEDS ORDERED: 0.9% Sodium Chloride 1,000 ML IV ONE (19:39)
[2016-11-08] MEDS ORDERED: fentaNYL-PF 50 mCg/mL 2 mL Inj IVPUSH ONE (19:45)
[2016-11-08 20:36] LABS: BASOPHILS % (AUTO) 0.4 % (0-3); EOSINOPHILS % (AUTO) 1.6 % (0-5); MONOCYTES % (AUTO) 6.3 % (4-12); Mean Corpuscular Hemoglobin 28.7 pg (27.0-35.0); Mean Corpuscular Volume 84.9 fL (81-100); NEUTROPHILS % (AUTO) 52.1 % (40-74); Platelet Count 159 bil/L (150-400)
[2016-11-08 20:59] LABS: Lipase 27 U/L (13-60); Magnesium 1.9 mg/dL (1.6-2.6)
[2016-11-08 21:03] LABS: TROPONIN T < 0.010 ug/L (0.0-0.011)
[2016-11-08 23:19] VITALS: BP 119/77; PULSE 70; RESP 14; O2SAT 97
[2016-11-09] MEDS ORDERED: _HYDROcodone/APAP 5-325 mg Tablet PO PRN (00:40)
[2016-11-09 01:00] VITALS: BP 119/77; PULSE 70; RESP 14; O2SAT 97
--- NOTE | 2016-11-09 09:45 | DRSVH ---
PROCEDURE: CT ABDOMEN AND PELVIS WITH CONTRAST ([id number]) INDICATIONS: RIGHT SIDED ABDOMINAL PAIN TECHNIQUE: After the administration of intravenous contrast, 5 mm thick sections acquired from the diaphragm to the symphysis. 5 mm coronal and sagittal reformats were acquired. For radiation dose reduction, the following was used: automated exposure control, adjustment of mA and/or kV according to patient siz e. COMPARISON: [facility] , [place], ABD/PELVIS W/CON ([facility]), 12/02/2008, 17:52. FINDINGS: Image quality: Excellent. ABDOMEN: Lung bases: Lung bases are clear. Heart size is normal. Solid organs: The spleen is normal in size and enhancement. Hepatic steatosis is present. Liver is vinnie rderline enlarged. Gallbladder has been removed. Biliary system is non dilated. Pancreas enhances n ormally. No adrenal nodules. Kidneys demonstrate normal size and enhancement, without hydronephrosi s. Peritoneum and bowel: Bowel loops demonstrate normal wall thickness and caliber. No free fluid or a ir. Nodes and vessels: No retroperitoneal or mesenteric adenopathy by size criteria. Aorta and inferior vena cava are normal in size. Miscellaneous: No ventral hernias. PELVIS: Genitourinary: Bladder wall thickness is normal. Miscellaneous: No inguinal hernias or adenopathy. Bones: No suspicious bony lesions. No vertebral body compression fractures. Unchanged left posterio r iliac bone island. IMPRESSION: 1. No visualized cause of acute intra-abdominal or pelvic abnormality. 2. Mild hepatomegaly with steatosis. Dictated by: Iqra Meyers M.D. on 11/09/2016 at 9:38 Approved by: Iqra Meyers M.D. on 11/09/2016 at 9:42
== END 2016-11-09 01:01 | disposition home or self-care (01) ==
LOC: SED 16:08
DX: R10.11 Right upper quadrant pain (principal); R07.9 Chest pain, unspecified; R06.00 Dyspnea, unspecified; I11.9 Hypertensive heart disease without heart failure; I50.9 Heart failure, unspecified; Z87.828 Personal history of other (healed) physical injury and trauma; Z90.49 Acquired absence of other specified parts of digestive tract; Z90.89 Acquired absence of other organs; Z87.891 Personal history of nicotine dependence; Z88.0 Allergy status to penicillin; Z88.5 Allergy status to narcotic agent; Z88.8 Allergy status to other drugs, medicaments and biological substances
CPT/HCPCS: 36415; 74177; 80053; 83690; 83735; 84484; 85025; 85378; 96361; 96374; 99285; J3010; J7030; Q9967